=== PATIENT | female | born 1955 | race Caucasian/White ===

== ENCOUNTER → 2017-05-09 | Outpatient (CLI) | payer OTHER ==
[2016-08-02 18:28] VITALS: BP 214/100
[~2017-05-09] MED LIST: HYDR-79 PO; ONDA8TAB12 PO
--- NOTE | 2017-05-09 10:49 | RAD ---
Left foot, 2 views, 05/09/2017: History: Foot pain, swelling There is moderate bony demineralization. No fracture or destructive bony lesion is seen. There are mild degenerative changes at the tarsal-metatarsal articulations. A small inferior calcaneal spur is noted. Minimal arterial calcifications are present. There is mild diffuse soft tissue swelling about the foot. IMPRESSION: 1. Demineralization. 2. Mild degenerative change. 3. No acute bony abnormality is detected.
== END | disposition home or self-care (01) ==
LOC: DXRADRC 09:46
PROVIDERS: ATTEND Physician Assistant
DX: M19.072 Primary osteoarthritis, left ankle and foot (principal); M77.32 Calcaneal spur, left foot; M25.872 Other specified joint disorders, left ankle and foot
CPT/HCPCS: 73620

== ENCOUNTER → 2019-03-12 | Outpatient (CLI) | payer OTHER, MEDICARE ==
[2016-08-02 18:28] VITALS: BP 214/100
[~2019-03-12] MED LIST changes: +HYDR-1179 PO; -HYDR-79 PO
--- NOTE | 2019-03-25 09:37 | RAD ---
DATE: 03/12/2019 EXAM: MAMMO SHAHRZAD SCREENING BILATERAL HISTORY: Routine screening COMPARISON: 10/04/2008 screening mammographic exam and left breast ultrasound 01/22/2014 This study was interpreted with the benefit of Computerized Aided Detection (CAD). Breast Density: SCATTERED The breast parenchyma shows scattered fibroglandular densities. Breast parenchyma level B. FINDINGS: Biopsy clip marker involves the left retroareolar region anteriorly. No masses or distortion. No suspicious calcifications. IMPRESSION: No suspicious process. BI-RADS CATEGORY: 1 NEGATIVE RECOMMENDED FOLLOW-UP: 12M 12 MONTH FOLLOW-UP PQRS compliance statement: Patient information was entered into a reminder system with a target due date in one year for the next mammogram. Mammography is a sensitive method for finding small breast cancers, but it does not detect them all and is not a substitute for careful clinical examination. A negative mammogram does not negate a clinically suspicious finding and should not result in delay in biopsying a clinically suspicious abnormality. "Our facility is accredited by the [employer] Mammography Program."
== END | disposition home or self-care (01) ==
LOC: MAMMO 08:54
PROVIDERS: ATTEND Physician Assistant
DX: Z12.31 Encounter for screening mammogram for malignant neoplasm of breast (principal)
CPT/HCPCS: 77063; 77067

== ENCOUNTER → 2020-05-16 | Outpatient (CLI) | payer OTHER, MEDICARE ==
[2016-08-02 18:28] VITALS: BP 214/100
--- NOTE | 2020-05-16 17:32 | RAD ---
DATE: 05/16/2020 EXAM: DIGITAL SCREEN BILAT W/CAD HISTORY: 64-year-old woman presenting for routine annual screening mammogram COMPARISON: 03/12/2019, 10/04/2008 This study was interpreted with the benefit of Computerized Aided Detection (CAD). Breast Density: SCATTERED The breast parenchyma shows scattered fibroglandular densities. Breast parenchyma level B. FINDINGS: A biopsy clip is in the subareolar left breast. There is no suspicious mass, suspicious calcification, or architectural distortion in either breast. IMPRESSION: No evidence of malignancy. BI-RADS CATEGORY: 2 BENIGN FINDING(S) RECOMMENDED FOLLOW-UP: 12M 12 MONTH FOLLOW-UP PQRS compliance statement: Patient information was entered into a reminder system with a target due date 05/17/2021 for the next mammogram. Mammography is a sensitive method for finding small breast cancers, but it does not detect them all and is not a substitute for careful clinical examination. A negative mammogram does not negate a clinically suspicious finding and should not result in delay in biopsying a clinically suspicious abnormality. "Our facility is accredited by the [employer] Mammography Program."
== END ==
LOC: MAMMO 15:03
PROVIDERS: ATTEND Physician Assistant
DX: Z12.31 Encounter for screening mammogram for malignant neoplasm of breast (principal)
CPT/HCPCS: 77067

== ENCOUNTER 2020-11-15 10:16 | Emergency (ER) | payer MEDICARE, OTHER ==
[~2020-11-15] VITALS: Ht 154.9 cm; Wt 61.0 kg
[2020-11-15] MEDS ORDERED: IV NORMAL SALINE 1,000ML 1,000 ML IV ONE (10:45)
[2020-11-15] MEDS ORDERED: IOHEXOL 300 MG/ML 75 ML VIAL. IV ONE (10:45)
[2020-11-15] MEDS ORDERED: ONDANSETRON PF 4 MG/2 ML VIAL. IVP ONE ×2 (10:45→12:45)
--- NOTE | 2020-11-15 10:45 | PHYS DOC ---
Past History Past Medical History: Depression Past Surgical History: Other Additional Past Surgical Histo: left shoulder surgery 2017 Alcohol Use: Occasionally Drug Use: None General Adult EDM: Chief Complaint: ABDOMINAL PAIN HPI: HPI: 65-year-old female presents with right lower quadrant abdominal pain for last 3 days. She started to have discomfort after some fish 3 days ago. She thought this might just be related to what she ate, but the pain has continued and increased today. She describes it as a sharp cramping sensation 7 out of 10. She has had some nausea but no vomiting. She thought she might need to throw up so she gagged herself and vomited once, 2 days ago. This did not help. She denies fever or chills. She has not had a bowel movement for 2 days. Her last bowel movement was small and hard. She does have issues with intermittent constipation. She took MiraLAX without effect. No abdominal surgical history. No major medical problems. Review of Systems: Review of Systems: Constitutional: Denies fever or chills Eyes: Denies change in visual acuity HENT: Denies nasal congestion or sore throat Respiratory: Denies cough or shortness of breath Cardiovascular: Denies chest pain or edema GI: Right lower quadrant abdominal pain, nausea, constipation. Denies vomiting, bloody stools or diarrhea : Denies dysuria Musculoskeletal: Denies back pain or joint pain Integument: Denies rash Neurologic: Denies headache, focal weakness or sensory changes Endocrine: Denies polyuria or polydipsia Lymphatic: Denies swollen glands Psychiatric: Denies depression or anxiety Current Medications: Current Meds: Current Medications Medications (Trade) Dose Ordered Sig/[facility] Start Time Stop Time Status Last Admin Dose Admin Sodium Chloride 1,000 ml @ 1,000 mls/hr 1X ONCE 11/15/20 10:45 11/15/20 11:44 UNV Allergies: Allergies: Allergies Coded Allergies Type Severity Reaction Last Updated Verified No Known Drug Allergies 08/02/16 No Physical Exam: PE: Constitutional: Well developed, well nourished, mild acute distress, non-toxic appearance. [] HENT: Normocephalic, atraumatic, bilateral external ears normal, oropharynx moist, no oral exudates, nose normal. [] Eyes: PERRLA, EOMI, conjunctiva normal, no discharge. [] Neck: Normal range of motion, no tenderness, supple, no stridor. [] Cardiovascular: Heart rate regular rhythm, no murmur [] Lungs & Thorax: Bilateral breath sounds clear to auscultation [] Abdomen: Bowel sounds normal, soft, RLQ tenderness, no masses, no pulsatile masses. [] Skin: Warm, dry, no erythema, no rash. [] Back: No tenderness, no CVA tenderness. [] Extremities: No tenderness, no cyanosis, no clubbing, ROM intact, no edema. [] Neurologic: Alert and oriented X 3, normal motor function, normal sensory function, no focal deficits noted. [] Psychologic: Affect normal, judgement normal, mood normal. [] Current Patient Data: Vital Signs: Vital Signs Date Time Temp Pulse Resp B/P (MAP) Pulse Ox O2 Delivery O2 Flow Rate FiO2 11/15/20 10:31 98.1 90 18 124/56 (78) 97 Room Air EKG: EKG: [] Radiology/Procedures: Radiology/Procedures: [] Impressions: EXAM: Abdomen and pelvis CT with intravenous contrast. HISTORY: Right lower quadrant pain. TECHNIQUE: Computed tomographic images of the abdomen and pelvis were obtained following the administration of intravenous contrast. Multiplanar reformatting was performed. *One or more of the following individualized dose reduction techniques were utilized for this examination: 1. Automated exposure control. 2. Adjustment of the mA and/or kV according to patient size. 3. Use of iterative reconstruction technique. COMPARISON: None. FINDINGS: Evaluation of the lower thorax demonstrates bilateral basilar atelectasis. There is no infiltrate or pleural effusion. No suspicious hepatic lesion is seen. The gallbladder is distended and contains stones. There is severe gallbladder wall thickening and pericholecystic fluid and stranding due to cholecystitis. The pancreas, spleen, adrenal glands and kidneys are unremarkable. There is a 2.1 cm hyperdense lesion along the lumen of the lesser curvature of the stomach at the level of the gastric cardia. The cecum is positioned within the left upper abdomen. There is no appendicitis. There is moderate colonic stool. The bladder is unremarkable. There is no suspicious adnexal lesion. There is a small amount of pelvic free fluid. There i s atherosclerosis involving the aorta and aortic branch vessels. There is no lymphadenopathy. There is no suspicious osseous lesion. IMPRESSION: 1. Cholelithiasis and superimposed cholecystitis. 2. 2.1 cm hyperdense lesion along the wall of the lesser curvature of the stomach at the level of the gastric cardia. This can be better assessed with an upper gastrointestinal series exam or endoscopy. Electronically signed by: Nahomy Lou MD (11/15/2020 11:34 AM) [id number] DICTATED AND SIGNED BY: NAHOMY LOU MD DATE: 11/15/20 1130 CC: BIANCA JADE DO; GEOFF CR ~MTH0 0 Heart Score: C/O Chest Pain: No Risk Factors: Risk Factors: DM, Current or recent (<one month) smoker, HTN, HLP, family history of CAD, obesity. Risk Scores: Score 0 - 3: 2.5% MACE over next 6 weeks - Discharge Home Score 4 - 6: 20.3% MACE over next 6 weeks - Admit for Clinical Observation Score 7 - 10: 72.7% MACE over next 6 weeks - Early Invasive Strategies Course & Med Decision Making: Course & Med Decision Making Pertinent Labs and Imaging studies reviewed. (See chart for details) The patient's labs show an elevated white count of 22 and mildly elevated liver enzymes. Her CT of the abdomen and pelvis shows cholelithiasis with cholecystitis. I have ordered Zosyn. For pain management, the patient has been 8 mg of Zofran, 4 mg of morphine, 30 mg of Toradol, and 1 mg of Dilaudid. She has requested to be transferred to [facility] for admission and surgery. I discussed the case with the hospitalist at [facility], and she has accepted the patient for transfer. She will go by ambulance. 35 minutes of critical care time was spent on this patient exclusive of other billable procedures. [] Dragon Disclaimer: Dragon Disclaimer: This electronic medical record was generated, in whole or in part, using a voice recognition dictation system. Departure Departure: Impression: Primary Impression: Cholecystitis with cholelithiasis Qualified Codes: K80.00 - Calculus of gallbladder with acute cholecystitis without obstruction Disposition: 02 SHORT TERM HOSPITAL Condition: STABLE Referrals: GEOFF CR (PCP) BIANCA JADE DO Nov 15, 2020 10:45
[2020-11-15 10:49] LABS: BASO # 0.1 x10^3/uL (0.0-0.2); BASO % 0 % (0-3); EOS # 0.1 x10^3/uL (0.0-0.7); EOS % 0 % (0-3); HEMATOCRIT 40.7 % (36.0-47.0); HEMOGLOBIN 13.2 g/dL (12.0-15.5); LYMPH # 1.3 x10^3/uL (1.0-4.8); LYMPH % 6 % (24-48); MEAN CORPUSCULAR HEMOGLOBIN 31 pg (25-35); MEAN CORPUSCULAR HGB CONC 33 g/dL (31-37); MEAN CORPUSCULAR VOLUME 97 fL (79-100); MONO # 2.1 x10^3/uL (0.0-1.1); MONO % 9 % (0-9); NEUT # 19.1 x10^3uL (1.8-7.7); NEUT % 85 % (31-73); PLATELET COUNT 387 x10^3/uL (140-400); RED BLOOD COUNT 4.22 x10^6/uL (3.50-5.40); RED CELL DISTRIBUTION WIDTH 14.3 % (11.5-14.5); WHITE BLOOD COUNT 22.6 x10^3/uL (4.0-11.0)
[2020-11-15 11:06] LABS: ALBUMIN 3.3 g/dL (3.4-5.0); ALBUMIN/GLOBULIN RATIO 0.8 (1.0-1.7); CALCIUM 9.2 mg/dL (8.5-10.1); GFR 55.3; POTASSIUM 3.9 mmol/L (3.5-5.1); TOTAL BILIRUBIN 0.6 mg/dL (0.2-1.0); TOTAL PROTEIN 7.5 g/dL (6.4-8.2)
--- NOTE | 2020-11-15 11:37 | RAD ---
EXAM: Abdomen and pelvis CT with intravenous contrast. HISTORY: Right lower quadrant pain. TECHNIQUE: Computed tomographic images of the abdomen and pelvis were obtained following the administ ration of intravenous contrast. Multiplanar reformatting was performed. *One or more of the following individualized dose reduction techniques were utilized for this examina tion: 1. Automated exposure control. 2. Adjustment of the mA and/or kV according to patient size. 3. Use of iterative reconstruction technique. COMPARISON: None. FINDINGS: Evaluation of the lower thorax demonstrates bilateral basilar atelectasis. There is no infi ltrate or pleural effusion. No suspicious hepatic lesion is seen. The gallbladder is distended and co ntains stones. There is severe gallbladder wall thickening and pericholecystic fluid and stranding du e to cholecystitis. The pancreas, spleen, adrenal glands and kidneys are unremarkable. There is a 2.1 cm hyperdense lesion along the lumen of the lesser curvature of the stomach at the level of the ed lissy cardia. The cecum is positioned within the left upper abdomen. There is no appendicitis. There is moderate co lonic stool. The bladder is unremarkable. There is no suspicious adnexal lesion. There is a small tyrone unt of pelvic free fluid. There is atherosclerosis involving the aorta and aortic branch vessels. The re is no lymphadenopathy. There is no suspicious osseous lesion. IMPRESSION: 1. Cholelithiasis and superimposed cholecystitis. 2. 2.1 cm hyperdense lesion along the wall of the lesser curvature of the stomach at the level of the gastric cardia. This can be better assessed with an upper gastrointestinal series exam or endoscopy. Electronically signed by: Nahomy Lou MD (11/15/2020 11:34 AM) [id number]
[2020-11-15 11:48] LABS: % BANDS 1 % (0-9); % EOS 1 % (0-5); % LYMPHS 6 % (24-48); % MONOS 9 % (0-10); % SEGS 83 % (35-66); PLT ESTIMATE ADEQUATE (ADEQUATE)
[2020-11-15] MEDS ORDERED: MORPHINE SULFATE 4 MG/ML DISP.SYRIN. IV ONE (12:00)
[2020-11-15] MEDS ORDERED: HYDROmorphone PF 1 MG/ML DISP.SYRIN IVP ONE (13:00)
[2020-11-15 14:22] VITALS: BP 108/56
== END 2020-11-15 14:25 | disposition short-term general hospital (02) ==
LOC: ER 10:16
DX: K80.00 Calculus of gallbladder with acute cholecystitis without obstruction (principal); F32.9 Major depressive disorder, single episode, unspecified; Z20.822 Contact with and (suspected) exposure to COVID-19
CPT/HCPCS: 36415; 74177; 80053; 83690; 85007; 85025; 87426; 96361; 96374; 96375; 96376; 99285; C9803; J1170; J2270; J2405; J7030; Q9967; U0003; U0005

== ENCOUNTER → 2021-06-20 | Outpatient (CLI) | payer OTHER ==
--- NOTE | 2021-06-20 16:14 | RAD ---
Bone densitometry 06/20/2021 2:34 PM Indication: Reason: SCREENING / Spl. Instructions: / History: Comparison Study: None. Discussion: Bone Densitometry was performed with dual photon absorption of the lumbar spine and pro ximal femur. Lumbar Spine: Bone average density is 0.89g/cm2 for L1-L4. T-Score is -2.4. (Prior T score -2.5) Right femoral neck: Bone average density is 0.774g/cm2. T-Score is -1.9. (Prior T score -2.3) IMPRESSION: Bone mineral density now within the low end of the osteopenic range, with overall bone mi neral density i slightly higher than on comparison study Note: Definitions established by the World Health Organization: Normal: T-score is -1.0 or above. Osteopenia: T-score is between -1.0 and -2.5. Osteoporosis: T-score is -2.5 or below. Electronically signed by: Trav Gonzalez MD (06/20/2021 4:12 PM) [id number]
--- NOTE | 2021-06-23 09:24 | RAD ---
DATE: 06/20/2021 2:34 PM EXAM: MG 2D BILAT SCREENING HISTORY: Routine screening no personal history of breast cancer. Family history of breast cancer in mother and 2 sisters, ages unspecified. COMPARISON: 09/16/2019 dating back to 03/12/2019 Bilateral full field craniocaudal and mediolateral oblique images were obtained using digital Ged[place] ue. This study was interpreted with the benefit of Computerized Aided Detection (CAD). FINDINGS: Breast Density: SCATTERED The breast parenchyma shows scattered fibroglandular densities. Breast par enchyma level B No suspicious masses, microcalcifications or architectural distortion is present to suggest malignanc y in either breast. Redemonstrated biopsy marker in the left superior breast at the anterior middle d epth junction. The visualized axillae are unremarkable. IMPRESSION: No mammographic evidence of malignancy. BI-RADS CATEGORY: 2 BENIGN FINDING(S) RECOMMENDED FOLLOW-UP: Annual screening mammography is recommended, unless clinically indicated soone r based on symptoms or change in physical exam. PQRS compliance statement: Patient information was entered into a reminder system with a target due d ate 06/23/2022 for the next mammogram. Mammography is a sensitive method for finding small breast cancers, but it does not detect them all a nd is not a substitute for careful clinical examination. A negative mammogram does not negate a clin ically suspicious finding and should not result in delay in biopsying a clinically suspicious abnorma lity. "Our facility is accredited by the [employer] Mammography Program." Electronically signed by: Tao Raman DO (06/23/2021 9:22 AM) [id number]
== END ==
LOC: MAMMO 14:26
PROVIDERS: ATTEND Physician Assistant
DX: Z12.31 Encounter for screening mammogram for malignant neoplasm of breast (principal); M85.89 Other specified disorders of bone density and structure, multiple sites; E55.9 Vitamin D deficiency, unspecified
CPT/HCPCS: 77063; 77067; 77080